=== PATIENT | male | born 1945 | race African-American/Black ===

== ENCOUNTER 2021-01-21 10:53 | Outpatient (CLI) | payer MEDICARE, BC, SELFPAY ==
[2021-01-21 19:10] LABS: Alanine Aminotransferase 20 U/L (4-50); Albumin Level 4.1 g/dL (3.5-5.1); Alkaline Phosphatase 73 U/L (38-126); Anion Gap 7 mmol/L (8-16); Aspartate Amino Transferase 26 U/L (17-59); Bilirubin,Total 1.1 mg/dL (0.2-1.3); Blood Urea Nitrogen 14 mg/dL (9-20); Calcium 9.6 mg/dL (8.4-10.2); Carbon Dioxide 25 mmol/L (22-30); Chloride 103 mmol/L (98-107); Cholesterol 125 mg/dL (0-200); Estimated Glomerular Filt Rate > 60; Glucose 130 mg/dL (65-110); HDL Direct 33 mg/dL; Potassium 4.8 mmol/L (3.4-5.0); Sodium 135 mmol/L (137-145); Triglycerides 108 mg/dL (<150)
[2021-01-21 19:20] LABS: LDL Cholesterol Direct 60 mg/dL
[2021-01-21 19:55] LABS: Hemoglobin A1C 8.1 % (<5.7)
[2021-01-23 22:17] LABS: PSA, Free 0.02 ng/mL; PSA, Total 0.1 ng/mL (<=4.0)
== END 2021-01-21 10:54 | disposition home or self-care (01) ==
PROVIDERS: PCP Family Medicine; Visit Provider Family Medicine
DX: Z12.5 Encounter for screening for malignant neoplasm of prostate (principal); Z51.81 Encounter for therapeutic drug level monitoring; Z79.899 Other long term (current) drug therapy; E66.3 Overweight; Z00.00 Encounter for general adult medical examination without abnormal findings
CPT/HCPCS: 36415; 80053; 80061; 83036; 84153; 84154; G0103

== ENCOUNTER 2021-01-28 10:43 | Outpatient (CLI) | payer MEDICARE, BC, SELFPAY ==
[2021-01-28 19:27] LABS: Hematocrit 43.6 % (42.0-52.0); Hemoglobin 13.1 g/dL (14.0-18.0); Mean Corpuscular Hemoglobin 22.7 pg (26-34); Mean Corpuscular Volume 75.4 fl (80-100); Mean Platelet Volume 11.3 fl (7.4-10.4); Platelet Count Result 184 k/mm3 (150-375); Red Blood Count 5.78 M/mm3 (4.6-6.20); Red Cell Distribution Width 17.7 % (11.5-14.5); White Blood Count 5.4 K/mm3 (4.5-10.0)
== END 2021-01-28 10:44 | disposition home or self-care (01) ==
PROVIDERS: PCP Family Medicine; Visit Provider Family Medicine
DX: R73.09 Other abnormal glucose (principal); E66.3 Overweight; Z76.89 Persons encountering health services in other specified circumstances
CPT/HCPCS: 36415; 83036; 85027

== ENCOUNTER 2021-04-30 09:16 | Outpatient (CLI) | payer MEDICARE, BC, SELFPAY ==
[2021-04-30 21:18] LABS: Hemoglobin A1C 6.8 % (<5.7)
== END 2021-04-30 09:17 | disposition home or self-care (01) ==
PROVIDERS: PCP Family Medicine; Visit Provider Family Medicine
DX: E11.9 Type 2 diabetes mellitus without complications (principal)
CPT/HCPCS: 36415; 83036

== ENCOUNTER 2021-04-30 11:00 | Outpatient (RCR) | payer MEDICARE, BC, SELFPAY ==
[2021-03-10 11:00] VITALS: BMI 31.1
[2021-03-10 11:02] VITALS: BMI 31.1
== END 2021-05-29 11:19 | disposition home or self-care (01) ==
LOC: ANHDMC 11:00
PROVIDERS: PCP Family Medicine; Visit Provider Family Medicine
DX: E11.9 Type 2 diabetes mellitus without complications (principal); Z71.3 Dietary counseling and surveillance; Z71.89 Other specified counseling
CPT/HCPCS: 36415; 83036; 97804; G0108

== ENCOUNTER 2021-05-06 11:29 | Outpatient (CLI) | payer MEDICARE, BC, SELFPAY ==
[2021-05-06 18:36] LABS: Hematocrit 40.4 % (42.0-52.0); Mean Corpuscular HGB Conc 29.7 g/dl (32-36); Mean Platelet Volume 10.7 fl (7.4-10.4); Platelet Count Result 264 k/mm3 (150-375); Red Blood Count 5.46 M/mm3 (4.6-6.20); Red Cell Distribution Width 16.5 % (11.5-14.5); White Blood Count 6.8 K/mm3 (4.5-10.0)
== END 2021-05-06 11:30 | disposition home or self-care (01) ==
PROVIDERS: PCP Family Medicine; Visit Provider Family Medicine
DX: E66.3 Overweight (principal)
CPT/HCPCS: 36415; 85027

== ENCOUNTER 2021-05-13 10:33 | Outpatient (CLI) | payer MEDICARE, BC, SELFPAY ==
[2021-05-13 17:49] LABS: Iron 74 ug/dL (49-181)
[2021-05-13 17:59] LABS: Percent Iron Saturation 30 % (20-50)
[2021-05-13 19:02] LABS: Folic Acid > 20.0 ng/mL (2.76->20); Vitamin B12 > 1000.0 pg/mL (239-931)
== END 2021-05-13 10:34 | disposition home or self-care (01) ==
PROVIDERS: PCP Family Medicine; Visit Provider Family Medicine
DX: D64.9 Anemia, unspecified (principal)
CPT/HCPCS: 36415; 82607; 82728; 82746; 83540; 83550

== ENCOUNTER 2021-06-15 12:08 | Outpatient (NON) | payer MEDICARE, BC, SELFPAY ==
[2021-06-15 14:27] LABS: IFOB Positive Control Positive; Immunochemical Fecal Occult Bl Negative (N)
== END 2021-06-15 12:09 | disposition home or self-care (01) ==
LOC: ANHLAB 06-17 12:20
PROVIDERS: PCP Family Medicine; Visit Provider Family Medicine
DX: D64.9 Anemia, unspecified (principal)
CPT/HCPCS: 82274

== ENCOUNTER 2021-07-02 12:15 | Outpatient (CLI) | payer MEDICARE, BC, SELFPAY ==
[2021-07-02 12:36] LABS: Basophils Absolute Auto 0.1 K/mm3 (0.0-0.1); Eosinophils Absolute Auto 0.2 K/mm3 (0-0.3); Eosinophils Percent Auto 2.8 % (0-4.4); Hematocrit 41.1 % (42.0-52.0); Hemoglobin 12.3 g/dL (14.0-18.0); Immature Granulocyte Absolute 0.01 K/mm3 (0.00-0.031); Immature Granulocyte Percent A 0.2 % (0-0.5); Lymphocytes Percent Auto 36.7 % (18.3-44.2); Mean Corpuscular HGB Conc 29.9 g/dl (32-36); Mean Corpuscular Hemoglobin 22.3 pg (26-34); Mean Corpuscular Volume 74.5 fl (80-100); Mean Platelet Volume 9.9 fl (7.4-10.4); Monocytes Absolute Auto 0.6 K/mm3 (0.1-0.6); Monocytes Percent Auto 10.7 % (2.6-8.5); Neutrophils Absolute Auto 2.9 K/mm3 (1.3-6.7); Neutrophils Percent Auto 48.6 % (45.5-73.1); Platelet Count Result 214 k/mm3 (150-375); Red Blood Count 5.52 M/mm3 (4.6-6.20); Red Cell Distribution Width 17.8 % (11.5-14.5)
[2021-07-02 13:06] LABS: Ovalocytes 1+ (NORMAL); Platelet Estimate Adequate (Adequate)
== END 2021-07-02 12:16 | disposition home or self-care (01) ==
PROVIDERS: PCP Family Medicine; Visit Provider Family Medicine
DX: D64.9 Anemia, unspecified (principal)
CPT/HCPCS: 36415; 85025

== ENCOUNTER 2021-07-30 09:36 | Outpatient (CLI) | payer MEDICARE, BC, SELFPAY ==
[2021-07-30 19:41] LABS: Alanine Aminotransferase 24 U/L (4-50); Albumin Level 4.2 g/dL (3.5-5.1); Alkaline Phosphatase 96 U/L (38-126); Anion Gap 7 mmol/L (8-16); Aspartate Amino Transferase 30 U/L (17-59); Bilirubin,Total 0.9 mg/dL (0.2-1.3); Blood Urea Nitrogen 16 mg/dL (9-20); Calcium 9.5 mg/dL (8.4-10.2); Carbon Dioxide 26 mmol/L (22-30); Chloride 102 mmol/L (98-107); Cholesterol 109 mg/dL (0-200); Estimated Glomerular Filt Rate > 60; Glucose 88 mg/dL (65-110); HDL Direct 36 mg/dL; Potassium 4.9 mmol/L (3.4-5.0); Sodium 135 mmol/L (137-145); Triglycerides 68 mg/dL (<150)
[2021-07-30 19:51] LABS: LDL Cholesterol Direct 57 mg/dL
[2021-07-31 13:00] LABS: Hemoglobin A1C 6.2 % (<5.7)
[2021-08-04 19:07] LABS: PSA, Free 0.03 ng/mL; PSA, Total <0.1 ng/mL (<=4.0)
== END 2021-07-30 09:37 | disposition home or self-care (01) ==
PROVIDERS: PCP Family Medicine; Visit Provider Family Medicine
DX: Z12.5 Encounter for screening for malignant neoplasm of prostate (principal); E11.9 Type 2 diabetes mellitus without complications
CPT/HCPCS: 36415; 80053; 80061; 83036; 84153; 84154; G0103

== ENCOUNTER 2021-08-12 14:30 | Outpatient (RCR) | payer MEDICARE, BC, SELFPAY | END 2021-10-05 14:23 | disposition home or self-care (01) | LOC: ANHDMC 14:30 | PROVIDERS: PCP Family Medicine; Visit Provider Family Medicine | DX: E11.9 Type 2 diabetes mellitus without complications (principal); Z71.89 Other specified counseling | CPT/HCPCS: 99199; G0109 ==

== ENCOUNTER 2022-02-10 10:12 | Outpatient (CLI) | payer MEDICARE, BC, SELFPAY ==
[2022-02-10 20:02] LABS: Basophils Absolute Auto 0.1 K/mm3 (0.0-0.1); Basophils Percent Auto 1.1 % (0.2-1.2); Eosinophils Absolute Auto 0.1 K/mm3 (0-0.3); Eosinophils Percent Auto 2.3 % (0-4.4); Hematocrit 43.9 % (42.0-52.0); Hemoglobin 13.1 g/dL (14.0-18.0); Immature Granulocyte Absolute 0.01 K/mm3 (0.00-0.031); Immature Granulocyte Percent A 0.2 % (0-0.5); Lymphocytes Absolute Auto 2.06 K/mm3 (0.9-3.2); Lymphocytes Percent Auto 39.2 % (18.3-44.2); Mean Corpuscular HGB Conc 29.8 g/dl (32-36); Mean Corpuscular Hemoglobin 22.5 pg (26-34); Mean Corpuscular Volume 75.6 fl (80-100); Mean Platelet Volume 10.6 fl (7.4-10.4); Monocytes Absolute Auto 0.6 K/mm3 (0.1-0.6); Monocytes Percent Auto 10.7 % (2.6-8.5); Neutrophils Absolute Auto 2.4 K/mm3 (1.3-6.7); Neutrophils Percent Auto 46.5 % (45.5-73.1); Platelet Count Result 219 k/mm3 (150-375); Red Blood Count 5.81 M/mm3 (4.6-6.20); Red Cell Distribution Width 18.2 % (11.5-14.5); White Blood Count 5.3 K/mm3 (4.5-10.0)
[2022-02-10 20:27] LABS: Platelet Estimate Adequate (Adequate)
[2022-02-10 20:28] LABS: Anisocytosis 2+ (NORMAL); Hypochromasia 1+ (NORMAL)
[2022-02-10 20:29] LABS: Anion Gap 10 mmol/L (8-16); Blood Urea Nitrogen 16 mg/dL (9-20); Calcium 8.9 mg/dL (8.4-10.2); Carbon Dioxide 24 mmol/L (22-30); Chloride 101 mmol/L (98-107); Estimated Glomerular Filt Rate > 60; Glucose 82 mg/dL (65-110); Potassium 4.9 mmol/L (3.4-5.0); Sodium 135 mmol/L (137-145)
[2022-02-10 23:22] LABS: Hemoglobin A1C 6.4 % (<5.7)
== END 2022-02-10 10:13 | disposition home or self-care (01) ==
PROVIDERS: PCP Family Medicine; Visit Provider Family Medicine
DX: I50.9 Heart failure, unspecified (principal); E11.9 Type 2 diabetes mellitus without complications; D64.9 Anemia, unspecified
CPT/HCPCS: 36415; 80048; 83036; 85025

== ENCOUNTER 2022-08-11 09:38 | Outpatient (CLI) | payer MEDICARE, BC, SELFPAY ==
[2022-08-11 19:48] LABS: Alanine Aminotransferase 32 U/L (6-50); Albumin Level 4.1 g/dL (3.5-5.1); Alkaline Phosphatase 82 U/L (38-126); Anion Gap 7 mmol/L (8-16); Aspartate Amino Transferase 98 U/L (17-59); Bilirubin,Total 0.9 mg/dL (0.2-1.3); Blood Urea Nitrogen 19 mg/dL (9-20); Carbon Dioxide 29 mmol/L (22-30); Chloride 101 mmol/L (98-107); Estimated Glomerular Filt Rate > 60; Glucose 77 mg/dL (65-110); Potassium 4.6 mmol/L (3.4-5.0); Sodium 137 mmol/L (137-145)
[2022-08-11 19:57] LABS: Basophils Percent Auto 0.8 % (0.2-1.2); Eosinophils Absolute Auto 0.1 K/mm3 (0-0.3); Eosinophils Percent Auto 2.2 % (0-4.4); Hematocrit 45.4 % (42.0-52.0); Hemoglobin 13.6 g/dL (14.0-18.0); Immature Granulocyte Absolute 0.01 K/mm3 (0.00-0.031); Immature Granulocyte Percent A 0.2 % (0-0.5); Lymphocytes Percent Auto 37.8 % (18.3-44.2); Mean Corpuscular Hemoglobin 22.3 pg (26-34); Mean Corpuscular Volume 74.5 fl (80-100); Mean Platelet Volume 11.1 fl (7.4-10.4); Monocytes Absolute Auto 0.5 K/mm3 (0.1-0.6); Monocytes Percent Auto 10.5 % (2.6-8.5); Neutrophils Absolute Auto 2.4 K/mm3 (1.3-6.7); Neutrophils Percent Auto 48.5 % (45.5-73.1); Platelet Count Result 209 k/mm3 (150-375); Red Blood Count 6.09 M/mm3 (4.6-6.20); Red Cell Distribution Width 17.9 % (11.5-14.5)
[2022-08-11 20:02] LABS: Creatinine Urine 50.9 mg/dL
[2022-08-11 20:20] LABS: MALB Creatinine Ratio < 11.8 mg/g (0-30); Microalbumin Urine Random < 6.0 mg/L (0-16.7)
[2022-08-11 20:49] LABS: Platelet Estimate Adequate (Adequate); Schistocytes None Seen (NORMAL)
[2022-08-11 20:50] LABS: Anisocytosis 2+ (NORMAL); Hypochromasia 1+ (NORMAL)
[2022-08-11 21:19] LABS: Hemoglobin A1C 6.6 % (<5.7)
== END 2022-08-11 09:39 | disposition home or self-care (01) ==
LOC: ANHBWCLAB 09:39
PROVIDERS: PCP Family Medicine; Visit Provider Family Medicine
DX: E11.9 Type 2 diabetes mellitus without complications (principal)
CPT/HCPCS: 36415; 80053; 82043; 83036; 85025

== ENCOUNTER 2023-02-14 09:58 | Outpatient (CLI) | payer MEDICARE, BC, SELFPAY ==
[2023-02-14 18:59] LABS: Alanine Aminotransferase 28 U/L (6-50); Alkaline Phosphatase 62 U/L (38-126); Anion Gap 7 mmol/L (8-16); Aspartate Amino Transferase 73 U/L (17-59); Bilirubin,Total 0.7 mg/dL (0.2-1.3); Blood Urea Nitrogen 23 mg/dL (9-20); Calcium 9.3 mg/dL (8.4-10.2); Carbon Dioxide 27 mmol/L (22-30); Chloride 103 mmol/L (98-107); Cholesterol 107 mg/dL (0-200); Estimated Glomerular Filt Rate > 60; Glucose 94 mg/dL (65-110); HDL Direct 32 mg/dL; Potassium 4.6 mmol/L (3.4-5.0); Sodium 137 mmol/L (137-145); Triglycerides 48 mg/dL (<150)
[2023-02-14 19:06] LABS: Creatinine Urine 278.7 mg/dL
[2023-02-14 19:07] LABS: MALB Creatinine Ratio 5.2 mg/g (0-30); Microalbumin Urine Random 14.4 mg/L (0-16.7)
[2023-02-14 19:10] LABS: LDL Cholesterol Direct 58 mg/dL
[2023-02-14 19:50] LABS: Hemoglobin A1C 6.5 % (<5.7)
[2023-02-14 19:55] LABS: Hematocrit 45.3 % (42.0-52.0); Hemoglobin 12.8 g/dL (14.0-18.0); Mean Corpuscular HGB Conc 28.3 g/dl (32-36); Mean Corpuscular Volume 77.7 fl (80-100); Mean Platelet Volume 11.2 fl (7.4-10.4); Platelet Count Result 201 k/mm3 (150-375); Red Blood Count 5.83 M/mm3 (4.6-6.20); Red Cell Distribution Width 17.5 % (11.5-14.5); White Blood Count 5.1 K/mm3 (4.5-10.0)
[2023-02-15 17:52] LABS: Prostate Specific Antigen 0.2 ng/mL (< OR = 4.0)
== END 2023-02-14 09:59 | disposition home or self-care (01) ==
PROVIDERS: PCP Family Medicine; Visit Provider Family Medicine
DX: E11.9 Type 2 diabetes mellitus without complications (principal); Z12.5 Encounter for screening for malignant neoplasm of prostate
CPT/HCPCS: 36415; 80053; 80061; 82043; 83036; 84153; 85027; G0103

== ENCOUNTER 2023-08-29 11:34 | Outpatient (CLI) | payer MEDICARE, BC, SELFPAY ==
[2023-08-29 20:37] LABS: Basophils Absolute Auto 0.1 K/mm3 (0.0-0.1); Eosinophils Absolute Auto 0.1 K/mm3 (0-0.3); Eosinophils Percent Auto 2.2 % (0-4.4); Hematocrit 45.7 % (42.0-52.0); Immature Granulocyte Absolute 0.01 K/mm3 (0.00-0.031); Immature Granulocyte Percent A 0.2 % (0-0.5); Lymphocytes Absolute Auto 2.15 K/mm3 (0.9-3.2); Lymphocytes Percent Auto 42.2 % (18.3-44.2); Mean Corpuscular HGB Conc 28.4 g/dl (32-36); Mean Corpuscular Hemoglobin 21.8 pg (26-34); Mean Corpuscular Volume 76.5 fl (80-100); Monocytes Absolute Auto 0.6 K/mm3 (0.1-0.6); Monocytes Percent Auto 11.8 % (2.6-8.5); Neutrophils Absolute Auto 2.2 K/mm3 (1.3-6.7); Neutrophils Percent Auto 42.6 % (45.5-73.1); Platelet Count Result 195 k/mm3 (150-375); Red Blood Count 5.97 M/mm3 (4.6-6.20); Red Cell Distribution Width 17.7 % (11.5-14.5); White Blood Count 5.1 K/mm3 (4.5-10.0)
[2023-08-29 20:45] LABS: Microalbumin Urine Random 7.1 mg/L (0-16.7)
[2023-08-29 20:47] LABS: Creatinine Urine 75.2 mg/dL; MALB Creatinine Ratio 9.4 mg/g (0-30)
[2023-08-29 21:30] LABS: Platelet Estimate Adequate (Adequate)
[2023-08-29 21:31] LABS: Anisocytosis 2+; Hypochromasia 1+; Microcytosis 1+ (NORMAL); Schistocytes None Seen
[2023-08-29 21:37] LABS: Alanine Aminotransferase 27 U/L (6-50); Albumin Level 4.2 g/dL (3.5-5.1); Alkaline Phosphatase 65 U/L (38-126); Anion Gap 3 mmol/L (4-12); Aspartate Amino Transferase 64 U/L (17-59); Bilirubin,Total 0.8 mg/dL (0.2-1.3); Blood Urea Nitrogen 20 mg/dL (9-20); Calcium 9.1 mg/dL (8.4-10.2); Carbon Dioxide 31 mmol/L (22-30); Chloride 102 mmol/L (98-107); Cholesterol 111 mg/dL (0-200); Estimated Glomerular Filt Rate > 60; Glucose 81 mg/dL (65-110); HDL Direct 36 mg/dL; Potassium 4.7 mmol/L (3.4-5.0); Sodium 136 mmol/L (137-145); Triglycerides 66 mg/dL (<150)
[2023-08-29 21:48] LABS: LDL Cholesterol Direct 64 mg/dL
[2023-08-29 22:44] LABS: Hemoglobin A1C 6.4 % (<5.7)
== END 2023-08-29 11:35 | disposition home or self-care (01) ==
PROVIDERS: PCP Family Medicine; Visit Provider Family Medicine
DX: E11.9 Type 2 diabetes mellitus without complications (principal)
CPT/HCPCS: 36415; 80053; 80061; 82043; 83036; 85025

== ENCOUNTER 2024-02-01 08:44 | Outpatient (CLI) | payer MEDICARE, BC, SELFPAY ==
--- NOTE | ~2024-02-01 | US_ITS ---
EXAMINATION: US abdomen limited DATE: 02/01/2024 09:08 INDICATION: Abnormal liver function tests. TECHNIQUE: Multiple grayscale and Doppler ultrasound images of the abdomen were obtained. COMPARISON: None FINDINGS: The pancreas is obscured by bowel gas. The liver is normal without focal lesion. No liver s urface nodularity. There is normal flow in main portal vein. The gallbladder is normal in size. No ga llstones or gallbladder wall thickening. There is no sonographic Maravilla's sign. The common duct is no rmal and measures 4 mm. IMPRESSION: 1. Normal right upper quadrant ultrasound. Reviewed, dictated and finalized at location A.
== END 2024-02-01 08:45 | disposition home or self-care (01) ==
LOC: GOSHIMG 08:45
PROVIDERS: PCP Family Medicine; Visit Provider Family Medicine
DX: R74.01 Elevation of levels of liver transaminase levels (principal)
CPT/HCPCS: 76705

== ENCOUNTER 2024-03-01 10:21 | Outpatient (CLI) | payer MEDICARE, BC, SELFPAY ==
[2024-03-01 19:52] LABS: Hematocrit 46.8 % (42.0-52.0); Hemoglobin 13.6 g/dL (14.0-18.0); Mean Corpuscular HGB Conc 29.1 g/dl (32-36); Mean Corpuscular Hemoglobin 22.4 pg (26-34); Mean Corpuscular Volume 77.2 fl (80-100); Mean Platelet Volume 10.9 fl (7.4-10.4); Platelet Count Result 199 k/mm3 (150-375); Red Blood Count 6.06 M/mm3 (4.6-6.20); Red Cell Distribution Width 18.3 % (11.5-14.5)
[2024-03-01 20:15] LABS: Alanine Aminotransferase 27 U/L (6-50); Albumin Level 4.4 g/dL (3.5-5.1); Alkaline Phosphatase 70 U/L (38-126); Anion Gap 6 mmol/L (4-12); Aspartate Amino Transferase 75 U/L (17-59); Bilirubin,Total 0.9 mg/dL (0.2-1.3); Blood Urea Nitrogen 19 mg/dL (9-20); Calcium 8.8 mg/dL (8.4-10.2); Carbon Dioxide 30 mmol/L (22-30); Chloride 98 mmol/L (98-107); Estimated Glomerular Filt Rate > 60; Glucose 91 mg/dL (65-110); Potassium 4.7 mmol/L (3.4-5.0); Sodium 134 mmol/L (137-145)
[2024-03-01 20:43] LABS: Prostate Specific Antigen 0.1 ng/mL (< OR = 4.0)
[2024-03-01 20:53] LABS: Creatinine Urine 64.8 mg/dL
[2024-03-01 21:16] LABS: Microalbumin Urine Random < 6.0 mg/L (0-16.7)
[2024-03-01 21:17] LABS: Hemoglobin A1C 6.8 % (<5.7)
[2024-03-01 21:26] LABS: Hepatitis B Surface Antigen Negative (Negative)
[2024-03-01 21:32] LABS: HAV RESULT Negative (Negative); Hepatitis B Core IgM Result Negative (Negative)
[2024-03-01 21:52] LABS: Hepatitis C Virus Antibody Negative (Negative)
[2024-03-08 05:45] LABS: MALB Creatinine Ratio < 9.3 mg/g (0-30)
== END 2024-03-01 10:22 | disposition home or self-care (01) ==
PROVIDERS: PCP Family Medicine; Visit Provider Family Medicine
DX: R74.01 Elevation of levels of liver transaminase levels (principal); E11.9 Type 2 diabetes mellitus without complications; I48.91 Unspecified atrial fibrillation; I50.9 Heart failure, unspecified; I11.0 Hypertensive heart disease with heart failure; E78.5 Hyperlipidemia, unspecified; D64.9 Anemia, unspecified; D56.9 Thalassemia, unspecified; Z12.5 Encounter for screening for malignant neoplasm of prostate
CPT/HCPCS: 36415; 80053; 80074; 82043; 82565; 83036; 84153; 85027; G0103

== ENCOUNTER 2024-09-05 09:50 | Outpatient (CLI) | payer MEDICARE, BC, SELFPAY ==
--- OUTSIDE RECORDS SUMMARY | 2024-09-05 10:45 | XMS_ITS | Referral Summary ---
Author Organization [facility] Address [address] [place] [address] Care Team Providers Care Production Potter Name Role Phone Charly Barnes MD Primary Care Provider [phone] John Younger MD Unavailable [phone] Allergies No known active allergies Medications Eliquis 5 mg tabletIndications :atrial fibrillation Take 1 tablet (5 mg total) by mouth 2 (two) times a day 1 Active atorvastatin (LIPITOR) 20 mg tabletIndications :hyperlipidemia Take 1 tablet (20 mg total) by mouth nightly 1 Active folic acid (FOLVITE) 1 mg tabletIndications :SUPPLEMENT Take 2 tablets (2 mg total) by mouth nightly 2 tablets 1 Active irbesartan (AVAPRO) 150 mg tabletIndications :hypertension Take 1 tablet (150 mg total) by mouth nightly 1 Active spironolactone (ALDACTONE) 25 mg tabletIndications :hypertension Take 1 tablet (25 mg total) by mouth every morning 1 Active carvediloL (COREG) 12.5 mg tabletIndications :hypertension Take 1 tablet (12.5 mg total) by mouth 2 (two) times a day with meals 2 Active loratadine (CLARITIN) 10 mg tabletIndications :Allergic Rhinitis Take 1 tablet (10 mg total) by mouth nightly Active omega 6-nuc-vcr-fish oil 1,200 (144-216) mg capsule Take 1,200 mg by mouth nightly Active vitamin E 200 unit capsule Take 1 capsule (200 Units total) by mouth daily Active cyanocobalamin (Vitamin B-12) 1,000 mcg tabletIndications :Prevention of Vitamin B12 Deficiency Take 1 tablet (1,000 mcg total) by mouth daily Active cholecalciferol, vitamin D3, 1,000 unit tablet,chewable Take 1 tablet/chew tab by mouth every morning Active erythromycin (ILOTYCIN) ophthalmic ointment Place on incisions three times per day and in operative eye as needed. 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 01/31 Ptosis of eyelid, left 10/29/2023 Assessment & Plan (10/29/2023 8:29 AM CDT): Referral to oculoplastics Pseudophakia of both eyes 06/27/2023 Assessment & Plan (06/27/2023 9:17 PM DATA DELIVERABLES MANAGER): Defers Mrx for now May obtain elsewhere Postop check 12/24/2022 Assessment & Plan (04/29/2023 2:31 PM DATA DELIVERABLES MANAGER): POM2.5 status post (s/p) cataract extraction (CE)/intraocular lens (IOL)/open bleb revision left eye (OS) Intraocular pressure (IOP) higher today, Xiao negative with large diffuse bleb, thick tenons will likely resolve No Mrx given Pred forte (PF) 1-1-0 taper, restart Alphagan left eye (OS) bid Cont Brim and Dorz right eye (OD) - intraocular pressure (IOP) excellent F/U 2 months/prn- Zavala visual field (HVF) 10-2 left eye (OS), OCT Assessment & Plan (03/21/2023 9:50 AM CDT): POW4 status post (s/p) cataract extraction (CE)/intraocular lens (IOL)/open bleb revision left eye (OS) Intraocular pressure (IOP) higher today, Xiao negative with large diffuse bleb, thick tenons will likely resolve Pred forte (PF) 3-3-2-2, restart Dorz left eye (OS) bid Cont Brim and Dorz right eye (OD) - intraocular pressure (IOP) excellent Reviewed prec F/U 1 month/prn- repeat Mrx left eye (OS) Assessment & Plan (02/25/2023 2:42 PM CDT): POW1 status post (s/p) cataract extraction (CE)/intraocular lens (IOL)/open bleb revision left eye (OS) Early hypotony resolved, Xiao negative with large diffuse bleb, thick tenons will likely resolve Pred forte (PF) 4-4-3, DC Oflox Hold glc meds left eye (OS) Hold timolol right eye (OD), restart brimonidine right eye (OD) Reviewed prec F/U 3 wks/prn Assessment & Plan (02/18/2023 11:15 AM CDT): POD1 status post (s/p) cataract extraction (CE)/intraocular lens (IOL)/open bleb revision left eye (OS) Early hypotony with bleb revision, Xiao negative with large diffuse bleb, thick tenons will likely resolve, no choroidals, deep anterior chamber (AC) Pred forte (PF) 6x/day, Oflox qid, renetta prn Hold glc meds left eye (OS) Hold timolol right eye (OD) Reviewed prec F/U 1 wk/prn Assessment & Plan (01/21/2023 1:25 PM CDT): POM1 status post (s/p) cataract extraction (CE)/intraocular lens (IOL)/KDB right eye (OD) Doing well- very happy with vision Intraocular pressure (IOP) lower today- continue to hold timolol Recommend cataract extraction (CE)/intraocular lens (IOL)/bleb revision left eye (OS) Discussed with pt- ready to schedule Target plano Assessment & Plan (01/03/2023 8:49 PM CDT): POW1 status post (s/p) cataract extraction (CE)/intraocular lens (IOL)/KDB right eye (OD) Doing well Suture tight in wound- vision improved Intraocular pressure (IOP) lower today- continue to hold timolol Pred forte (PF) taper off, DC oflox F/U 1 month Resume activities, september travel Assessment & Plan (12/24/2022 7:57 AM CDT): POD1 status post (s/p) cataract extraction (CE)/intraocular lens (IOL)/KDB right eye (OD) Doing well Suture tight in wound- Intraocular pressure (IOP) lower today- hold timolol for now Pred forte (PF)/Oflox qid, cont dorz both eyes (OU) F/U 1 wk Reviewed precautions Primary angle closure glaucoma of right eye, mil d stage 12/01/2020 Assessment & Plan (04/28/2024 8:08 AM DATA DELIVERABLES MANAGER): Intraocular pressure (IOP) acceptable low teens on 2 classes status post (s/p) KDB Zavala visual field (HVF) NS defects, OCT stable with early thinning CPM for now Assessment & Plan (10/29/2023 8:29 AM CDT): intraocular pressure (IOP) stable in low teens on 2 classes status post (s/p) KDB CPM for now Assessment & Plan (06/27/2023 9:16 PM DATA DELIVERABLES MANAGER): intraocular pressure (IOP) stable in low teens on 2 classes status post (s/p) KDB CPM for now Assessment & Plan (11/08/2022 8:50 PM CDT): intraocular pressure (IOP) remains borderline full Zavala visual field (HVF) but inf nerve fiber layer (NFL) thinning progression CPM- tolerating brimonidine with chronic follicular changes/stable left eye (OS) Narrow angle- unable to perform SLT Likely benefit to cataract extraction (CE)/MIGS- noted on Eliquis ? May be able to DC preop Discussed with pt Assessment & Plan (08/02/2022 12:59 PM CDT): intraocular pressure (IOP) remains borderline with nl nerve fiber layer (NFL) and full Zavala visual field (HVF) CPM- tolerating brimonidine with chronic follicular changes/stable left eye (OS) Now to use both eyes (OU) Narrow angle- may be difficult to perform SLT F/U 2-3 months with testing Assessment & Plan (06/01/2022 10:26 AM DATA DELIVERABLES MANAGER): Patient states he was noticing some visual changes at the completion of first bottle of cosopt, so he switched back to previous drops This seemed to alleviate visual symptoms. Some confusion on drop schedule, as patient now using brimonidine OU Follicular reaction stable from previous notes 1-2+ OU, patient states his eyes feel fine - nothing keeping him from using medications at this time IOP today 22 / 8. Educated patient on drop schedule until next visit with CJS, gave patient written form as well with drop schedule. RTC 2 months with CJS, will correspond as well today. Can f/u with me between if needed. Brimonidine TID OU Timolol BID OU Dorzolamide BID OU Assessment & Plan (03/27/2022 7:23 AM CDT): intraocular pressure (IOP) remains borderline with nl nerve fiber layer (NFL) and full Zavala visual field (HVF) CPM- tolerating brimonidine with chronic follicular changes/stable Will hold left eye (OS) for comparison Narrow angle- may be difficult to perform SLT Switch to Cosopt bid and intraocular pressure (IOP) check in 2 months cataract extraction (CE)/MIGS may be a good option- noted Eliquis tx Assessment & Plan (09/28/2021 9:59 PM CDT): intraocular pressure (IOP) borderline with nl nerve fiber layer (NFL) and full Zavala visual field (HVF) CPM- tolerating brimonidine with chronic follicular changes/stable Narrow angle- may be difficult to perform SLT Assessment & Plan (05/04/2021 10:53 AM DATA DELIVERABLES MANAGER): intraocular pressure (IOP) improved - good adherence Noted intraocular pressure (IOP) lowering with dose of brimonidine- ? Early follicular changes both eyes (OU)- discussed with pt Monitor closely with full Zavala visual field (HVF) May benefit from early cataract extraction (CE) Assessment & Plan (01/06/2021 7:56 AM CDT): intraocular pressure (IOP) improved - good adherence Noted intraocular pressure (IOP) lowering with dose of brimonidine Monitor closely with full Zavala visual field (HVF) May benefit from early cataract extraction (CE) Assessment & Plan (12/01/2020 9:04 PM CDT): Significant area of angle appears closed- ? Progressive intraocular pressure (IOP) elevated today as pt reports intraocular pressure (IOP) was in mid to upper teens 4 months ago Early nerve fiber layer (NFL) loss, full Zavala visual field (HVF) Increase brimonidine to tid F/U 1 month- Primary open angle glaucoma (POAG) of left eye, severe stage 12/01/2020 Assessment & Plan (04/28/2024 8:06 AM DATA DELIVERABLES MANAGER): Status post (s/p) bleb revision- intraocular pressure (IOP) acceptable back on 2 classes CPM Zavala visual field (HVF) 10-2 and OCT stable F/U [address] Whatley DFE F/U 1 yr with in Zavala visual field (HVF) 24-2 both eyes (OU), OCT Assessment & Plan (10/29/2023 8:28 AM CDT): Status post (s/p) bleb revision- intraocular pressure (IOP) acceptable back on 2 classes CPM F/U 4-5 months with Zavala visual field (HVF) 10-2 left eye (OS), 24-2 right eye (OD), OCT Assessment & Plan (06/27/2023 9:15 PM DATA DELIVERABLES MANAGER): Status post (s/p) bleb revision- intraocular pressure (IOP) acceptable back on 2 classes Zavala visual field (HVF) 10-2 and OCT stable CPM F/U 4 months with DFE Assessment & Plan (11/08/2022 8:45 PM CDT): intraocular pressure (IOP) acceptable status post (s/p) trab on 3 classes Baseline Zavala visual field (HVF) 10-2 today Needling may be difficult with diffusely thickened bleb Follicular reaction asymptomatic/stable Recommend Trab revision with cataract extraction (CE)- discussed with pt Assessment & Plan (08/02/2022 12:59 PM CDT): intraocular pressure (IOP) acceptable status post (s/p) trab on 3 classes Monitor closely Needling may be difficult with diffusely thickened bleb Baseline Zeiss OCT today appears stable Follicular rxn likely from brimonidine asymptomatic but appears worse F/U 2-3 months-Zavala visual field (HVF) 10-2, BAT, DFE, OCT Assessment & Plan (06/01/2022 10:28 AM DATA DELIVERABLES MANAGER): S/P trab Previous follicular conjunctivitis, patient has been using brimonidine OU since last visit - no comparison possible today. RTC with CJS 2 months, PRN with me between See above Brimonidine TID OU Timolol BID OU Dorzolamide BID OU Assessment & Plan (03/27/2022 7:20 AM CDT): intraocular pressure (IOP) acceptable status post (s/p) trab on 3 classes Monitor closely Needling may be difficult with diffusely thickened bleb Baseline Zeiss OCT today appears stable Follicular rxn likely from brimonidine asymptomatic but appears worse Hold brimonidine left eye (OS) and switch to Cosopt OU F/U 2 months- intraocular pressure (IOP) and follicle check with Dr. Whatley Then back to me thereafter Assessment & Plan (09/28/2021 9:58 PM CDT): intraocular pressure (IOP) acceptable status post (s/p) trab on 3 classes Monitor closely Needling may be difficult with diffusely thickened bleb Zavala visual field (HVF) and OCT stable F/U 5 months-OCT- RNFL and ganglion cell layer (GCL) Assessment & Plan (05/04/2021 10:53 AM DATA DELIVERABLES MANAGER): intraocular pressure (IOP) acceptable status post (s/p) trab on 3 classes Monitor closely Reviewed records from Dr. India Talbot may be difficult with diffusely thickened bleb F/U 5 months- Zavala visual field (HVF), OCT, BAT, DFE Assessment & Plan (01/06/2021 7:54 AM CDT): intraocular pressure (IOP) acceptable status post (s/p) trab on 3 classes Monitor closely Reviewed records from Dr. India Talbot may be difficult with diffusely thickened bleb F/U 4 months Assessment & Plan (12/01/2020 9:03 PM CDT): No records available for review Pt reports intraocular pressure (IOP) in 30s on maximal meds, status post (s/p) SLT Underwent trab left eye (OS) with some resultant vision loss Now with acceptable intraocular pressure (IOP) on 3 classes Bleb appears diffuse, thickened CPM for now with significant visual field (VF) loss, afferent pupillary defect (APD), avg CCT Resolved Problems Problem Noted Date Diagnosed Date Resolved Date Age-related nuclear cataract of both eyes 12/01/2020 06/27/2023 Assessment & Plan (11/08/2022 8:48 PM CDT): BAT confirms glare sx both eyes (OU) Glaucoma significance to angle right eye (OD), ? Potential left eye (OS) with advanced visual field (VF) loss Recommend cataract extraction (CE) / intraocular lens (IOL) KDB right eye (OD) Cataract extraction (CE)/intraocular lens (IOL)/ Bleb revision left eye (OS) Target plano Pt to decide which eye first Assessment & Plan (08/02/2022 1:00 PM CDT): Some glare symptoms left eye (OS)? Check BAT next visit - appears to be developing PSC Assessment & Plan (09/28/2021 9:59 PM CDT): Not VS- observe Assessment & Plan (05/04/2021 10:54 AM DATA DELIVERABLES MANAGER): No significant lens rise, Not VS BAT next visit Assessment & Plan (12/01/2020 9:05 PM CDT): No significant lens rise, Not VS Immunizations Immunization Administration Dates Next Due Influenza, Quad, Adjuvantated, Intramuscular 08/2022 Influenza, Quadrivalent, Hig h Dose, Preservative Free, Intrr 02/17/2022,03/05/2021 Influenza, Trivalent, High D ose, Split, Preservative Free, Intramuscular 02/08/2024 Pfizer SARS-CoV-2 Monovalent Vaccination (12+ Yrs) PURPLE 08/25/2020,08/01/2020 RSV Vaccine, Pref, Recombina nt, Subunit, Adjuvanted, PF, IM (Arexvy) 03/16/2023 Social History Tobacco Use Types Packs/Day Years Used Date Smoking Tobacco: Never Passive Smoke Exposure: Never Smokeless Tobacco: Never Tobacco Cessation:Counseling Given: Not Answered AUDIT-C Answer Date Recorded Q1: How often do you have a drink containing alcohol? Never 04/23/2024 Q2: How many drinks containi ng alcohol do you have on a typical day when you are drinking? Patient does not drink Q3: How often do you have si x or more drinks on one occasion? Never 04/23/2024 Personal Safety Answer Date Recorded Have you ever been in or are you currently in a harmful physical or emotional relationship or is someone making you feel afraid or unsafe? Denies 04/23/2024 Sex and Gender Information Value Date Recorded Sex Assigned at Not on file Legal Sex Male 11:27 AM CDT Gender Identity Male 02/28/2023 1:58 PM CDT Sexual Orientation Straight 02/28/2023 1: 58 PM CDT Last Filed Vital Signs Vital Sign Reading Time Taken Comments Blood Pressure 128/85 04/23/2024 11:45 AM DATA DELIVERABLES MANAGER Pulse 71 04/23/2024 11:45 AM DATA DELIVERABLES MANAGER Temperature 36.2 C (97.2 F) 04/23/2024 11:15 AM DATA DELIVERABLES MANAGER Respiratory Rate 20 04/23/2024 11:4 5 AM DATA DELIVERABLES MANAGER Oxygen Saturation 95% 04/23/2024 11: 45 AM DATA DELIVERABLES MANAGER Inhaled Oxygen Concentration - - Weight 112.4 kg (247 lb 11.2 oz) 04/23/2024 9:37 AM DATA DELIVERABLES MANAGER Height 190.5 cm (6' 3 ) 04/23/2024 9:37 AM DATA DELIVERABLES MANAGER Body Mass Index 30.96 04/23/2024 9:37 AM DATA DELIVERABLES MANAGER Plan of Treatment Not on file Medical Devices Implanted Type Area Hat Sprayer Device Identifier Shelf Expiration Date Model / Serial / Lot [employer] Lens Iol Tecnis Smplcty 1-Pc Clr [place] 20.5 Diopter [id number] - [id number] - [id number] Implanted:Qty: 1 on 12/23/2022 by Spring Yeboah MD at [facility] [employer] [id number] 07/19/2025 [id number] / [id number] / [employer] Lens Iol Tecnis Smplcty 1-Pc Clr [place] 20.5 Diopter [id number] - [id number] - [id number] Implanted:Qty: 1 on 02/17/2023 by Spring Yeboah MD at [facility] Left: Eye [employer] [id number] 09/13/2025 [id number] / [id number] / Insurance MEDICARE [facility] MEDICARE [facility] Care Teams Production Potter Relationship Specialty Start Date End Date Charly Barnes MD PCP - General Family Practice 05/04/21 John Younger MD [address] DEPT OPHTHALMOLOGY, [address] [address] Surgeon Ophthalmology 04/23/24
--- OUTSIDE RECORDS SUMMARY | 2024-09-05 10:45 | XMS_ITS | Clinical Summary ---
Author Organization [facility] Address [address] [place] [address] Care Team Providers Care Facility Supervisor Name Role Phone Charly Barnes MD Primary Care Provider [phone] John Younger MD Unavailable [phone] Allergies No known active allergies Medications Eliquis [...] mg total) by mouth nightly Active omega 6-nll-hqe-fish oil 1,200 (144-216) mg capsule Take 1,200 [...] 06/27/2023 Assessment & Plan (06/27/2023 9:17 PM BEEF SELECTOR): Defers Mrx for now May obtain elsewhere Postop check 12/24/2022 Assessment & Plan (04/29/2023 2:31 PM BEEF SELECTOR): POM2.5 status post (s/p) cataract extraction (CE)/intraocular [...] 12/01/2020 Assessment & Plan (04/28/2024 8:08 AM BEEF SELECTOR): Intraocular pressure (IOP) acceptable low teens on 2 classes status post (s/p) KDB Zavala visual field (HVF) NS defects, OCT stable with early thinning CPM for now Assessment & Plan (10/29/2023 8:29 AM CDT): intraocular pressure (IOP) stable in low teens on 2 classes status post (s/p) KDB CPM for now Assessment & Plan (06/27/2023 9:16 PM BEEF SELECTOR): intraocular pressure (IOP) stable in low teens [...] testing Assessment & Plan (06/01/2022 10:26 AM BEEF SELECTOR): Patient states he was noticing some visual [...] SLT Assessment & Plan (05/04/2021 10:53 AM BEEF SELECTOR): intraocular pressure (IOP) improved - good adherence [...] 12/01/2020 Assessment & Plan (04/28/2024 8:06 AM BEEF SELECTOR): Status post (s/p) bleb revision- intraocular pressure (IOP) acceptable back on 2 classes CPM Zavala visual field (HVF) 10-2 and OCT stable F/U [address] Whatley DFE F/U 1 yr with tx Zavala visual field (HVF) 24-2 both eyes (OU), OCT Assessment & Plan (10/29/2023 8:28 AM CDT): Status post (s/p) bleb revision- intraocular pressure (IOP) acceptable back on 2 classes CPM F/U 4-5 months with Zavala visual field (HVF) 10-2 left eye (OS), 24-2 right eye (OD), OCT Assessment & Plan (06/27/2023 9:15 PM BEEF SELECTOR): Status post (s/p) bleb revision- intraocular pressure [...] OCT Assessment & Plan (06/01/2022 10:28 AM BEEF SELECTOR): S/P trab Previous follicular conjunctivitis, patient has [...] (GCL) Assessment & Plan (05/04/2021 10:53 AM BEEF SELECTOR): intraocular pressure (IOP) acceptable status post (s/p) [...] observe Assessment & Plan (05/04/2021 10:54 AM BEEF SELECTOR): No significant lens rise, Not VS BAT [...] nt, Subunit, Adjuvanted, PF, IM (Arexvy) 03/16/2023 Surgical History Surgery Date Site/Laterality Comments TRABECULOPLASTY 05/23/2018 - 05/22/2019 Left SLT BUNIONECTOMY 05/23/1999 - 05/22/2000 Right CATARACT EXTRACTION W/ INTRAOCULAR LENS IMPLANT 12/23/2022 Right CE/IOL/KDB - Dr. Yeboah CATARACT EXTRACTION W/ INTRAOCULAR LENS IMPLANT 02/17/2023 Left CE/IOL/Bleb revision-Dr. Yeboah BLEPHAROPTOSIS REPAIR 04/23/[address] Younger Medical History Medical History Date Comments Glaucoma Hypertension Arrhythmia CHF (congestive heart failure) ([facility]) A-fib ([facility]) Family History Medical History Relation Name Comments Anesthesia problems Neg Hx Glaucoma Neg Hx Macular degeneration Neg Hx Malig Hypertension Neg Hx Malig Hyperthermia Neg Hx Pseudochol deficiency Neg Hx Social History Tobacco Use Types Packs/Day Years [...] Orientation Straight 02/28/2023 1: 58 PM CDT Obstetrics History Last Filed Vital Signs Vital Sign Reading Time Taken Comments Blood Pressure 128/85 04/23/2024 11:45 AM BEEF SELECTOR Pulse 71 04/23/2024 11:45 AM BEEF SELECTOR Temperature 36.2 C (97.2 F) 04/23/2024 11:15 AM BEEF SELECTOR Respiratory Rate 20 04/23/2024 11:4 5 AM BEEF SELECTOR Oxygen Saturation 95% 04/23/2024 11: 45 AM BEEF SELECTOR Inhaled Oxygen Concentration - - Weight 112.4 kg (247 lb 11.2 oz) 04/23/2024 9:37 AM BEEF SELECTOR Height 190.5 cm (6' 3 ) 04/23/2024 9:37 AM BEEF SELECTOR Body Mass Index 30.96 04/23/2024 9:37 AM BEEF SELECTOR Plan of Treatment Health Maintenance Due Date Last Done Comments Depression Screening 1945 DTaP/Tdap/Td Vaccine (1 - Tdap) 10/18/1954 Hepatitis B Screening 10/18/1961 Pneumococcal vaccine 65+ (1 of 1 - PCV) 10/18/1993 Zoster Vaccine (1 of 2) 10/18/1993 Well Visit 65+ 10/18/2008 Covid-19 Vaccine (8 - 2023-2 5 season) 2024 02/08/2024, 02/23/2023, 02/26/2022, Additional history exists Fall Risk Assessment 04/23/2025 04/23/2024 Influenza Vaccine Completed 02/08/2024, , 02/17/2022, Additional history exists Medical Devices Implanted Type Area Assembler Unit Device Identifier Shelf Expiration Date Model / Serial / Lot [employer] Lens Iol Tecnis Smplcty 1-Pc Clr [place] 20.5 Diopter [id number] - [id number] - [id number] Implanted:Qty: 1 on 12/23/2022 by Spring Yeboah MD at [facility] [employer] [id number] 07/19/2025 [id number] / [id number] / [employer] Lens Iol Tecnis Smplcty 1-Pc Clr [place] 20.5 Diopter [id number] - [id number] - [id number] Implanted:Qty: 1 on 02/17/2023 by Spring Yeboah MD at [facility] Left: Eye [employer] [id number] 09/13/2025 [id number] / [id number] / [place] [address] MEDICARE [facility] Address: [address] [address] [facility] Member Subscriber Plan / Payer (Ef fective 2019-Present) Name:Gilberto Deleon Relation to Subscriber:Spouse Name:KIRT DELEON Date of :1963 (Home) Address: [address] [place] [address] Payer ID:[id number] (NAIC) Group ID:[id number] Type: [employer] Address: [address] [place] [id number] [place] [address] MEDICARE [place] [address] Care Teams Facility Supervisor Relationship Specialty Start Date End Date Charly Barnes MD PCP - General Family Practice 05/04/21 John Younger MD [address] DEPT OPHTHALMOLOGY, [address] [address] Surgeon Ophthalmology 04/23/24
[2024-09-05 19:53] LABS: Hematocrit 44.9 % (42.0-52.0); Hemoglobin 12.4 g/dL (14.0-18.0); Mean Corpuscular HGB Conc 27.6 g/dl (32-36); Mean Corpuscular Hemoglobin 21.6 pg (26-34); Mean Corpuscular Volume 78.1 fl (80-100); Mean Platelet Volume 10.6 fl (7.4-10.4); Platelet Count Result 236 k/mm3 (150-375); Red Blood Count 5.75 M/mm3 (4.6-6.20); Red Cell Distribution Width 17.4 % (11.5-14.5); White Blood Count 5.5 K/mm3 (4.5-10.0)
[2024-09-05 20:12] LABS: Alanine Aminotransferase 21 U/L (6-50); Albumin Level 3.8 g/dL (3.5-5.1); Alkaline Phosphatase 72 U/L (38-126); Anion Gap 9 mmol/L (4-12); Aspartate Amino Transferase 125 U/L (17-59); Bilirubin,Total 0.6 mg/dL (0.2-1.3); Blood Urea Nitrogen 15 mg/dL (9-20); Calcium 8.7 mg/dL (8.4-10.2); Carbon Dioxide 29 mmol/L (22-30); Chloride 101 mmol/L (98-107); Cholesterol 113 mg/dL (0-200); Estimated Glomerular Filt Rate 56; Glucose 92 mg/dL (65-110); HDL Direct 37 mg/dL; Potassium 4.6 mmol/L (3.4-5.0); Sodium 139 mmol/L (137-145); Triglycerides 107 mg/dL (<150)
[2024-09-05 20:23] LABS: LDL Cholesterol Direct 38 mg/dL
[2024-09-05 20:38] LABS: Hemoglobin A1C 6.9 % (<5.7)
== END 2024-09-05 09:51 | disposition home or self-care (01) ==
PROVIDERS: PCP Family Medicine; Visit Provider Family Medicine
DX: D56.9 Thalassemia, unspecified (principal); E11.9 Type 2 diabetes mellitus without complications; I10 Essential (primary) hypertension
CPT/HCPCS: 36415; 80053; 80061; 83036; 85027

== ENCOUNTER 2024-11-27 09:40 | Outpatient (CLI) | payer MEDICARE, BC, SELFPAY ==
--- OUTSIDE RECORDS SUMMARY | 2024-11-27 09:47 | XMS_ITS | Clinical Summary ---
Author Organization [facility] Address [address] [place] [address] Care Team Providers Care Airplane Dispatcher Name Role Phone Charly Barnes MD Primary Care Provider [phone] John Younger MD Unavailable [phone] Allergies No known active allergies Medications Eliquis [...] mg total) by mouth nightly Active omega 3-ovo-dod-fish oil 1,200 (144-216) mg capsule Take 1,200 [...] 06/27/2023 Assessment & Plan (06/27/2023 9:17 PM COOK FISHING VESSEL): Defers Mrx for now May obtain elsewhere Postop check 12/24/2022 Assessment & Plan (04/29/2023 2:31 PM COOK FISHING VESSEL): POM2.5 status post (s/p) cataract extraction (CE)/intraocular [...] 12/01/2020 Assessment & Plan (04/28/2024 8:08 AM COOK FISHING VESSEL): Intraocular pressure (IOP) acceptable low teens on 2 classes status post (s/p) KDB Zavala visual field (HVF) NS defects, OCT stable with early thinning CPM for now Assessment & Plan (10/29/2023 8:29 AM CDT): intraocular pressure (IOP) stable in low teens on 2 classes status post (s/p) KDB CPM for now Assessment & Plan (06/27/2023 9:16 PM COOK FISHING VESSEL): intraocular pressure (IOP) stable in low teens [...] testing Assessment & Plan (06/01/2022 10:26 AM COOK FISHING VESSEL): Patient states he was noticing some visual [...] SLT Assessment & Plan (05/04/2021 10:53 AM COOK FISHING VESSEL): intraocular pressure (IOP) improved - good adherence [...] 12/01/2020 Assessment & Plan (04/28/2024 8:06 AM COOK FISHING VESSEL): Status post (s/p) bleb revision- intraocular pressure (IOP) acceptable back on 2 classes CPM Zavala visual field (HVF) 10-2 and OCT stable F/U [address] Whatley DFE F/U 1 yr with fl Zavala visual field (HVF) 24-2 both eyes (OU), OCT Assessment & Plan (10/29/2023 8:28 AM CDT): Status post (s/p) bleb revision- intraocular pressure (IOP) acceptable back on 2 classes CPM F/U 4-5 months with Zavala visual field (HVF) 10-2 left eye (OS), 24-2 right eye (OD), OCT Assessment & Plan (06/27/2023 9:15 PM COOK FISHING VESSEL): Status post (s/p) bleb revision- intraocular pressure [...] OCT Assessment & Plan (06/01/2022 10:28 AM COOK FISHING VESSEL): S/P trab Previous follicular conjunctivitis, patient has [...] (GCL) Assessment & Plan (05/04/2021 10:53 AM COOK FISHING VESSEL): intraocular pressure (IOP) acceptable status post (s/p) [...] observe Assessment & Plan (05/04/2021 10:54 AM COOK FISHING VESSEL): No significant lens rise, Not VS BAT next visit Assessment & Plan (12/01/2020 9:05 PM CDT): No significant lens rise, Not VS Encounters Date Type Department Care Team Description 10/30/2024 Telephone [facility] [place] [address] Spring Yeboah MD questions for clinic from Last 3 Months Immunizations Immunization Administration Dates Next Due Influenza, [...] Glaucoma Hypertension Arrhythmia CHF (congestive heart failure) (HCC) A-fib (HCC) Family History Medical History Relation Name Comments [...] Comments Blood Pressure 128/85 04/23/2024 11:45 AM COOK FISHING VESSEL Pulse 71 04/23/2024 11:45 AM COOK FISHING VESSEL Temperature 36.2 C (97.2 F) 04/23/2024 11:15 AM COOK FISHING VESSEL Respiratory Rate 20 04/23/2024 11:4 5 AM COOK FISHING VESSEL Oxygen Saturation 95% 04/23/2024 11: 45 AM COOK FISHING VESSEL Inhaled Oxygen Concentration - - Weight 112.4 kg (247 lb 11.2 oz) 04/23/2024 9:37 AM COOK FISHING VESSEL Height 190.5 cm (6' 3) 04/23/2024 9:37 AM COOK FISHING VESSEL Body Mass Index 30.96 04/23/2024 9:37 AM COOK FISHING VESSEL Plan of Treatment Health Maintenance Due Date Last Done Comments Depression Screening 1945 DTaP/Tdap/Td Vaccine (1 - Tdap) 10/18/1954 Hepatitis B Screening 10/18/1961 Pneumococcal vaccine 65+ (1 of 1 - PCV) 10/18/1993 Zoster Vaccine (1 of 2) 10/18/1993 Well Visit 65+ 10/18/2008 Covid-19 Vaccine (8 - 2023-2 5 season) 2024 02/08/2024, 02/23/2023, 02/26/2022, Additional history exists Influenza Vaccine (#1) 2025 , 02/23/2023, 02/17/2022, Additional history exists Fall Risk Assessment 04/23/2025 04/23/2024 Medical Devices Implanted Type Area Kindergarten Instructional Assistant Device Identifier Shelf Expiration Date Model / Serial / Lot [employer] Lens Iol Tecnis Smplcty 1-Pc Clr [place] 20.5 Diopter [id number] - [id number] - [id number] Implanted:Qty: 1 on 12/23/2022 by Spring Yeboah MD at [facility] [employer] [id number] 07/19/2025 [id number] / [id number] / [employer] Lens Iol Tecnis Smplcty 1-Pc Clr [place] 20.5 Diopter [id number] - [id number] - [id number] Implanted:Qty: 1 on 02/17/2023 by Spring Yeboah MD at [facility] Left: Eye [employer] [id number] 09/13/2025 [id number] / [id number] / Insurance MEDICARE [facility] FEDERAL MEDICARE [facility] [place] [id number] Care Teams Airplane Dispatcher Relationship Specialty Start Date End Date Charly Barnes MD PCP - General Family Practice 05/04/21 John Younger MD [address] DEPT OPHTHALMOLOGY, [address] [address] Surgeon Ophthalmology 04/23/24
--- OUTSIDE RECORDS SUMMARY | 2024-11-27 09:47 | XMS_ITS | Referral Summary ---
Author Organization [facility] Address [address] [place] [address] Care Team Providers Care House Fellow Name Role Phone Charly Barnes MD Primary Care Provider [phone] John Younger MD Unavailable [phone] Encounters Date Type Department Care Team Description 10/30/2024 Telephone [facility] Ophthalmology [address] [place] [address] Spring Yeboah MD questions for clinic from Last 3 Months Allergies No known active allergies Medications Eliquis [...] mg total) by mouth nightly Active omega 8-egz-vdn-fish oil 1,200 (144-216) mg capsule Take 1,200 [...] 06/27/2023 Assessment & Plan (06/27/2023 9:17 PM MASTER COOK): Defers Mrx for now May obtain elsewhere Postop check 12/24/2022 Assessment & Plan (04/29/2023 2:31 PM MASTER COOK): POM2.5 status post (s/p) cataract extraction (CE)/intraocular [...] 12/01/2020 Assessment & Plan (04/28/2024 8:08 AM MASTER COOK): Intraocular pressure (IOP) acceptable low teens on 2 classes status post (s/p) KDB Zavala visual field (HVF) NS defects, OCT stable with early thinning CPM for now Assessment & Plan (10/29/2023 8:29 AM CDT): intraocular pressure (IOP) stable in low teens on 2 classes status post (s/p) KDB CPM for now Assessment & Plan (06/27/2023 9:16 PM MASTER COOK): intraocular pressure (IOP) stable in low teens [...] testing Assessment & Plan (06/01/2022 10:26 AM MASTER COOK): Patient states he was noticing some visual [...] (CE)/MIGS may be a good option- noted Chrissy galvan Assessment & Plan (09/28/2021 9:59 PM CDT): intraocular pressure (IOP) borderline with nl nerve fiber layer (NFL) and full Zavala visual field (HVF) CPM- tolerating brimonidine with chronic follicular changes/stable Narrow angle- may be difficult to perform SLT Assessment & Plan (05/04/2021 10:53 AM MASTER COOK): intraocular pressure (IOP) improved - good adherence [...] 12/01/2020 Assessment & Plan (04/28/2024 8:06 AM MASTER COOK): Status post (s/p) bleb revision- intraocular pressure (IOP) acceptable back on 2 classes CPM Zavala visual field (HVF) 10-2 and OCT stable F/U [address] Whatley DFE F/U 1 yr with me Zavala visual field (HVF) 24-2 both eyes (OU), OCT Assessment & Plan (10/29/2023 8:28 AM CDT): Status post (s/p) bleb revision- intraocular pressure (IOP) acceptable back on 2 classes CPM F/U 4-5 months with Zavala visual field (HVF) 10-2 left eye (OS), 24-2 right eye (OD), OCT Assessment & Plan (06/27/2023 9:15 PM MASTER COOK): Status post (s/p) bleb revision- intraocular pressure [...] OCT Assessment & Plan (06/01/2022 10:28 AM MASTER COOK): S/P trab Previous follicular conjunctivitis, patient has [...] (GCL) Assessment & Plan (05/04/2021 10:53 AM MASTER COOK): intraocular pressure (IOP) acceptable status post (s/p) trab on 3 classes Monitor closely Reviewed records from Dr. Osborne Needling may be difficult with diffusely thickened bleb F/U 5 months- Zavala visual field (HVF), OCT, BAT, DFE Assessment & Plan (01/06/2021 7:54 AM CDT): intraocular pressure (IOP) acceptable status post (s/p) trab on 3 classes Monitor closely Reviewed records from Dr. Osborne Needling may be difficult with diffusely thickened [...] observe Assessment & Plan (05/04/2021 10:54 AM MASTER COOK): No significant lens rise, Not VS BAT [...] Comments Blood Pressure 128/85 04/23/2024 11:45 AM MASTER COOK Pulse 71 04/23/2024 11:45 AM MASTER COOK Temperature 36.2 C (97.2 F) 04/23/2024 11:15 AM MASTER COOK Respiratory Rate 20 04/23/2024 11:4 5 AM MASTER COOK Oxygen Saturation 95% 04/23/2024 11: 45 AM MASTER COOK Inhaled Oxygen Concentration - - Weight 112.4 kg (247 lb 11.2 oz) 04/23/2024 9:37 AM MASTER COOK Height 190.5 cm (6' 3) 04/23/2024 9:37 AM MASTER COOK Body Mass Index 30.96 04/23/2024 9:37 AM MASTER COOK Plan of Treatment Not on file Medical Devices Implanted Type Area Student Teaching Coordinator Device Identifier Shelf Expiration Date Model / Serial / Lot [employer] Lens Iol Tecnis Smplcty 1-Pc Clr [place] 20.5 Diopter [id number] - [id number] - [id number] Implanted:Qty: 1 on 12/23/2022 by Spring Yeboah MD at [facility] [place] [employer] [id number] 07/19/2025 [id number] / [id number] / [employer] Lens Iol Tecnis Smplcty 1-Pc Clr [place] 20.5 Diopter [id number] - [id number] - [id number] Implanted:Qty: 1 on 02/17/2023 by Spring Yeboah MD at [facility] Left: Eye [employer] [id number] 09/13/2025 [id number] / [id number] / Insurance MEDICARE [facility] MEDICARE [facility] Care Teams House Fellow Relationship Specialty Start Date End Date Charly Barnes MD PCP - General Family Practice 05/04/21 John Younger MD [address] DEPT OPHTHALMOLOGY, [address] [address] Surgeon Ophthalmology 04/23/24
[2024-11-27 19:47] LABS: Alanine Aminotransferase 23 U/L (6-50); Albumin Level 4.0 g/dL (3.5-5.1); Alkaline Phosphatase 58 U/L (38-126); Aspartate Amino Transferase 65 U/L (17-59); Bilirubin,Total 0.7 mg/dL (0.2-1.3); Total Protein 7.6 g/dL (6.3-8.2)
== END 2024-11-27 09:41 | disposition home or self-care (01) ==
LOC: ANHBWCLAB 09:42
PROVIDERS: PCP Family Medicine; Visit Provider Family Medicine
DX: R74.01 Elevation of levels of liver transaminase levels (principal)
CPT/HCPCS: 36415; 80076

== ENCOUNTER 2025-01-24 14:40 | Outpatient (CLI) | payer MEDICARE, BC, SELFPAY ==
--- OUTSIDE RECORDS SUMMARY | 2025-01-24 14:46 | XMS_ITS | Clinical Summary ---
Author Organization [facility] Address [address] [place] [address] Care Team Providers Care Art Education Professor Name Role Phone Charly Barnes MD Primary Care Provider [phone] John Younger MD Unavailable [phone] Allergies No known active allergies Medications Eliquis [...] mg total) by mouth nightly Active omega 9-ium-udj-fish oil 1,200 (144-216) mg capsule Take 1,200 [...] 06/27/2023 Assessment & Plan (06/27/2023 9:17 PM CHEMIST INTERN): Defers Mrx for now May obtain elsewhere Postop check 12/24/2022 Assessment & Plan (04/29/2023 2:31 PM CHEMIST INTERN): POM2.5 status post (s/p) cataract extraction (CE)/intraocular [...] 12/01/2020 Assessment & Plan (04/28/2024 8:08 AM CHEMIST INTERN): Intraocular pressure (IOP) acceptable low teens on 2 classes status post (s/p) KDB Zavala visual field (HVF) NS defects, OCT stable with early thinning CPM for now Assessment & Plan (10/29/2023 8:29 AM CDT): intraocular pressure (IOP) stable in low teens on 2 classes status post (s/p) KDB CPM for now Assessment & Plan (06/27/2023 9:16 PM CHEMIST INTERN): intraocular pressure (IOP) stable in low teens [...] testing Assessment & Plan (06/01/2022 10:26 AM CHEMIST INTERN): Patient states he was noticing some visual [...] SLT Assessment & Plan (05/04/2021 10:53 AM CHEMIST INTERN): intraocular pressure (IOP) improved - good adherence [...] 12/01/2020 Assessment & Plan (04/28/2024 8:06 AM CHEMIST INTERN): Status post (s/p) bleb revision- intraocular pressure (IOP) acceptable back on 2 classes CPM Zavala visual field (HVF) 10-2 and OCT stable F/U [address] Whatley DFE F/U 1 yr with or Zavala visual field (HVF) 24-2 both eyes (OU), OCT Assessment & Plan (10/29/2023 8:28 AM CDT): Status post (s/p) bleb revision- intraocular pressure (IOP) acceptable back on 2 classes CPM F/U 4-5 months with Zavala visual field (HVF) 10-2 left eye (OS), 24-2 right eye (OD), OCT Assessment & Plan (06/27/2023 9:15 PM CHEMIST INTERN): Status post (s/p) bleb revision- intraocular pressure [...] OCT Assessment & Plan (06/01/2022 10:28 AM CHEMIST INTERN): S/P trab Previous follicular conjunctivitis, patient has [...] (GCL) Assessment & Plan (05/04/2021 10:53 AM CHEMIST INTERN): intraocular pressure (IOP) acceptable status post (s/p) [...] observe Assessment & Plan (05/04/2021 10:54 AM CHEMIST INTERN): No significant lens rise, Not VS BAT next visit Assessment & Plan (12/01/2020 9:05 PM CDT): No significant lens rise, Not VS Encounters Date Type Department Care Team Description 10/30/2024 Telephone [facility] [facility] [place] [id number] Spring Yeboah MD questions for clinic from [...] Comments Blood Pressure 128/85 04/23/2024 11:45 AM CHEMIST INTERN Pulse 71 04/23/2024 11:45 AM CHEMIST INTERN Temperature 36.2 C (97.2 F) 04/23/2024 11:15 AM CHEMIST INTERN Respiratory Rate 20 04/23/2024 11:4 5 AM CHEMIST INTERN Oxygen Saturation 95% 04/23/2024 11: 45 AM CHEMIST INTERN Inhaled Oxygen Concentration - - Weight 112.4 kg (247 lb 11.2 oz) 04/23/2024 9:37 AM CHEMIST INTERN Height 190.5 cm (6' 3) 04/23/2024 9:37 AM CHEMIST INTERN Body Mass Index 30.96 04/23/2024 9:37 AM CHEMIST INTERN Plan of Treatment Health Maintenance Due Date Last Done Comments Depression Screening 1945 DTaP/Tdap/Td Vaccine (1 - Tdap) 10/18/1954 Hepatitis B Screening 10/18/1961 Pneumococcal vaccine 65+ (1 of 1 - PCV) 10/18/1993 Zoster Vaccine (1 of 2) 10/18/1993 Well Visit 65+ 10/18/2008 Covid-19 Vaccine (2023-2 5 season) 2024 02/08/2024, 02/23/2023, 02/26/2022, Additional history exists Influenza Vaccine (#1) 2025 , 02/23/2023, 02/17/2022, Additional history exists Fall Risk Assessment 04/23/2025 04/23/2024 Medical Devices Implanted Type Area Oven Operator Automatic Device Identifier Shelf Expiration Date Model / Serial / Lot [employer] Lens Iol Tecnis Smplcty 1-Pc Clr [place] 20.5 Diopter [id number] - [id number] - [id number] Implanted:Qty: 1 on 12/23/2022 by Spring Yeboah MD at [facility] [employer] [id number] 07/19/2025 [id number] / [id number] / [employer] Lens Iol Tecnis Smplcty 1-Pc Clr [place] 20.5 Diopter [id number] - [id number] - [id number] Implanted:Qty: 1 on 02/17/2023 by Spring Yeboah MD at [facility] Left: Eye [employer] [id number] 09/13/2025 [id number] / [id number] / Insurance MEDICARE [facility] FEDERAL [facility] [place] [phone] MEDICARE [facility] [place] [phone] Care Teams Art Education Professor Relationship Specialty Start Date End Date Charly Barnes MD PCP - General Family Practice 05/04/21 John Younger MD [address] DEPT OPHTHALMOLOGY, [address] [address] Surgeon Ophthalmology 04/23/24
[2025-01-24 18:52] LABS: Hematocrit 43.2 % (42.0-52.0); Hemoglobin 12.6 g/dL (14.0-18.0); Immature Granulocyte Percent A 0.2 % (0-0.5); Lymphocytes Absolute Auto 2.35 K/mm3 (0.9-3.2); Mean Corpuscular HGB Conc 29.2 g/dl (32-36); Mean Corpuscular Hemoglobin 21.9 pg (26-34); Mean Corpuscular Volume 75.0 fl (80-100); Nucleated Red Blood Cells Absolute Auto 0.000 K/mm3 (0.0-0.012); Nucleated Red Blood Cells Perc 0.0 % (0.0-0.2); Platelet Count Result 195 k/mm3 (150-375); Red Blood Count 5.76 M/mm3 (4.6-6.20); White Blood Count 5.9 K/mm3 (4.5-10.0)
[2025-01-24 19:07] LABS: Alanine Aminotransferase 25 U/L (6-50); Albumin Level 4.0 g/dL (3.5-5.1); Alkaline Phosphatase 77 U/L (38-126); Anion Gap 6 mmol/L (4-12); Aspartate Amino Transferase 63 U/L (17-59); Bilirubin,Total 0.6 mg/dL (0.2-1.3); Blood Urea Nitrogen 16 mg/dL (9-20); Calcium 8.8 mg/dL (8.4-10.2); Carbon Dioxide 28 mmol/L (22-30); Chloride 101 mmol/L (98-107); Estimated Glomerular Filt Rate 57; Glucose 113 mg/dL (65-110); Potassium 4.5 mmol/L (3.4-5.0); Sodium 135 mmol/L (137-145); Total Protein 7.7 g/dL (6.3-8.2)
[2025-01-24 19:10] LABS: Hypochromasia 1+
[2025-01-24 19:11] LABS: Ovalocytes 1+; Schistocytes None Seen
[2025-01-24 19:12] LABS: NT Pro B Type Natriuretic Pept 1060 pg/mL (19.9-100)
[2025-01-24 19:34] LABS: MALB Creatinine Ratio 12.8 mg/g (0-30); Prostate Specific Antigen 0.1 ng/mL (< OR = 4.0); Thyroid Stimulating Hormone 1.920 uIU/mL (0.465-4.680)
[2025-01-24 19:53] LABS: Vitamin B12 919.0 pg/mL (239-931)
[2025-01-24 20:28] LABS: Hemoglobin A1C 6.7 % (<5.7)
== END 2025-01-24 14:41 | disposition home or self-care (01) ==
PROVIDERS: PCP Family Medicine; Visit Provider Family Medicine
DX: I48.91 Unspecified atrial fibrillation (principal); E78.5 Hyperlipidemia, unspecified; D64.9 Anemia, unspecified; D56.9 Thalassemia, unspecified; E11.9 Type 2 diabetes mellitus without complications; E55.9 Vitamin D deficiency, unspecified; I11.0 Hypertensive heart disease with heart failure; I50.9 Heart failure, unspecified; Z12.5 Encounter for screening for malignant neoplasm of prostate
CPT/HCPCS: 36415; 80053; 82043; 82172; 82306; 82607; 83036; 83880; 84153; 84443; 85025; G0103

== ENCOUNTER 2025-01-29 10:54 | Outpatient (CLI) | payer MEDICARE, BC, SELFPAY ==
--- NOTE | 2025-01-29 10:57 | ECHO_ITS ---
Patient Info Name: Gilberto Soto Age: 79 years : 1945 Gender: Male Ht: 74 in Wt: 245 lbs BSA: 2.44 m2 HR: 75 bpm BP: 144 / 80 mmHg Heart Rhythm: Atrial Fibrillation Technical Quality: Good Exam Date: 01/29/2025 11:18 AM Patient Status: O Admit Date: 01/29/2025 Exam Type: CA echo doppler color flow Complete two-dimensional, color flow and Doppler transthoracic echocardiogram is performed. Abrasive Coating Machine Operator: Polnia Luna Attending Provider: Charly Barnes Summary 1. Complete two-dimensional, color flow and Doppler transthoracic echocardiogram is performed. 2. Left ventricular chamber dimension is mildly enlarged. 3. Left ventricular systolic function is normal, estimated at 55-60. 4. There is mild concentric increased left ventricular wall thickness. 5. The left ventricular diastolic function is abnormal. 6. E/e' 18 is elevated. 7. Atrial fibrillation. 8. Right ventricular chamber dimension is moderately enlarged. 9. Right ventricular systolic function is mildly reduced and with abnormal TAPSE 1.3 cm. 10. Left atrial chamber dimension is severely enlarged. 11. Right atrial chamber dimension is moderately enlarged. 12. There is mild aortic valve sclerosis. 13. There is mild mitral valve regurgitation. 14. There is mild to moderate tricuspid valve regurgitation. 15. No pulmonary hypertension, estimated pulmonary arterial systolic pressure is 35 mmHg. 16. There is small to moderate circumferential pericardial effusion. Left Ventricle E/e' 18 is elevated. Left ventricular chamber dimension is mildly enlarged. Left ventricular systolic function is normal, estimated at 55-60. There is mild concentric increased left ventricular wall thickness. The left ventricular diastolic function is abnormal. Atrial fibrillation. Right Ventricle Right ventricular chamber dimension is moderately enlarged. Right ventricular systolic function is mildly reduced and with abnormal TAPSE 1.3 cm. Left Atria Left atrial chamber dimension is severely enlarged. Right Atria Right atrial chamber dimension is moderately enlarged. Aortic Valve The aortic valve is trileaflet. There is mild aortic valve sclerosis. There is no aortic valve stenosis. There is no aortic valve regurgitation. Pulmonic Valve There is no pulmonic regurgitation. Mitral Valve There is no mitral valve stenosis. There is mild mitral valve regurgitation. Tricuspid Valve There is mild to moderate tricuspid valve regurgitation. No pulmonary hypertension, estimated pulmonary arterial systolic pressure is 35 mmHg. Pericardium/Pleural There is small to moderate circumferential pericardial effusion. No cardiac tamponade. Inferior Vena Cava Normal inferior vena cava with >50% collapse upon inspiration consistent with normal right atrial pressure, 5 mmHg. Aorta The aortic root size at the sinus of Valsalva is normal. Left Ventricular Outflow Tract Name Value Normal LVOT 2D LVOT Diameter 2.2 cm LVOT Doppler LVOT Peak Velocity 79 cm/s LVOT Peak Gradient 2 mmHg LVOT Mean Gradient 1 mmHg LVOT VTI 18 cm LVOT VTI/AV VTI Ratio 0.8 LVOT Stroke Volume 70 ml LVOT CO 11.2 l/min LVOT CI 4.6 l/min/m2 Pulmonic Valve Name Value Normal PV Doppler PV Peak Velocity 79 cm/s PV Peak Gradient 2 mmHg Mitral Valve Name Value Normal MV Diastolic Function MV E Peak Velocity 126 cm/s MV A Peak Velocity 5 cm/s MV E/A 25.9 MV Decel Time (PW) 172 ms MV Annular TDI MV E/e' (Septal) 20.2 MV E/e' (Lateral) 16.2 MV E/e' (Average) 18.2 Tricuspid Valve Name Value Normal TV Regurgitation Doppler TR Peak Velocity 275 cm/s TR Peak Gradient 30 mmHg Estimated PAP/RSVP RA Pressure 5 mmHg <=5 PA Systolic Pressure 35 mmHg <36 RV Systolic Pressure 35 mmHg <36 TV Annular TDI TV Lateral Charis s' Velocity 6.7 cm/s >=9.5 Aorta Name Value Normal Ascending Aorta Ao Root Diameter (MM) 3.5 cm Ao Root Diam Index (MM) 1.4 cm/m2 Aortic Valve Name Value Normal AV Doppler AV Peak Velocity 99 cm/s AV Peak Gradient 3 mmHg AV Mean Gradient 2 mmHg AV VTI 22 cm AV Area (Cont Eq VTI) 3.2 cm2 >=3.0 AV Area (Cont Eq Marshall) 3.1 cm2 AV DI (Marshall) 0.79 AV Regurgitation 2D LVOT Area 4.0 cm2 Ventricles Name Value Normal LV Dimensions 2D/MM IVS Diastolic Thickness (2D) 1.2 cm 0.6-1.0 LVID Diastole (2D) 5.2 cm 4.2-5.8 LVIW Diastolic Thickness (2D) 1.3 cm 0.6-1.0 LVID Systole (2D) 3.6 cm 2.5-4.0 LVOT Diameter 2.2 cm LV Mass (2D Cubed) 261.96 g 88.00-224.00 LV Mass Index (2D Cubed) 108 g/m2 49-115 Relative Wall Thickness (2D) 0.49 <=0.42 LV Fractional Shortening/Ejection Fraction 2D/MM LV Fractional Shortening (2D) 31 % 25-43 LV EF (2D Teichholz) 58 % LV Diastolic Volume (4C MOD) 102 ml LV EF (4C MOD) 53 % LV Diastolic Volume (2C MOD) 143 ml LV EF (2C MOD) 56 % LV Diastolic Volume (BP MOD) 122 ml 62-150 LV Diastolic Volume Index (BP MOD) 50 ml/m2 34-74 LV Systolic Volume (BP MOD) 57 ml 21-61 LV Systolic Volume Index (BP MOD) 24 ml/m2 11-31 LV EF (BP MOD) 53 % 52-72 LV Diastolic Length (4C) 8.7 cm LV Systolic Length (4C) 7.9 cm LV Stroke Volume (4C MOD) 54 ml RV Dimensions 2D/MM RVID Diastole (2D) 5.0 cm 2.1-3.5 Atria Name Value Normal LA Dimensions LA Dimension (MM) 4.9 cm 3.0-4.0 LA Volume (4C A-L) 116 ml LA Volume (BP A-L) 124 ml RA Dimensions RA Systolic Major Willard Length (4C) 6.4 cm 2.1-2.7 RA Area (4C) 27.0 cm2 <=18.0 Report Signatures
--- OUTSIDE RECORDS SUMMARY | 2025-01-29 12:45 | XMS_ITS | Clinical Summary ---
Author Organization [facility] Address [address] [place] [address] Care Team Providers Care Axle Polisher Name Role Phone Charly Barnes MD Primary Care Provider [phone] John Younger MD Unavailable [phone] Allergies No known active allergies Medications Eliquis [...] mg total) by mouth nightly Active omega 7-coa-ziv-fish oil 1,200 (144-216) mg capsule Take 1,200 [...] 06/27/2023 Assessment & Plan (06/27/2023 9:17 PM INTERNATIONAL TRADE TEACHER): Defers Mrx for now May obtain elsewhere Postop check 12/24/2022 Assessment & Plan (04/29/2023 2:31 PM INTERNATIONAL TRADE TEACHER): POM2.5 status post (s/p) cataract extraction (CE)/intraocular [...] 12/01/2020 Assessment & Plan (04/28/2024 8:08 AM INTERNATIONAL TRADE TEACHER): Intraocular pressure (IOP) acceptable low teens on 2 classes status post (s/p) KDB Zavala visual field (HVF) NS defects, OCT stable with early thinning CPM for now Assessment & Plan (10/29/2023 8:29 AM CDT): intraocular pressure (IOP) stable in low teens on 2 classes status post (s/p) KDB CPM for now Assessment & Plan (06/27/2023 9:16 PM INTERNATIONAL TRADE TEACHER): intraocular pressure (IOP) stable in low teens [...] testing Assessment & Plan (06/01/2022 10:26 AM INTERNATIONAL TRADE TEACHER): Patient states he was noticing some visual [...] SLT Assessment & Plan (05/04/2021 10:53 AM INTERNATIONAL TRADE TEACHER): intraocular pressure (IOP) improved - good adherence [...] 12/01/2020 Assessment & Plan (04/28/2024 8:06 AM INTERNATIONAL TRADE TEACHER): Status post (s/p) bleb revision- intraocular pressure (IOP) acceptable back on 2 classes CPM Zavala visual field (HVF) 10-2 and OCT stable F/U [address] Whatley DFE F/U 1 yr with wv Zavala visual field (HVF) 24-2 both eyes (OU), OCT Assessment & Plan (10/29/2023 8:28 AM CDT): Status post (s/p) bleb revision- intraocular pressure (IOP) acceptable back on 2 classes CPM F/U 4-5 months with Zavala visual field (HVF) 10-2 left eye (OS), 24-2 right eye (OD), OCT Assessment & Plan (06/27/2023 9:15 PM INTERNATIONAL TRADE TEACHER): Status post (s/p) bleb revision- intraocular pressure [...] OCT Assessment & Plan (06/01/2022 10:28 AM INTERNATIONAL TRADE TEACHER): S/P trab Previous follicular conjunctivitis, patient has [...] (GCL) Assessment & Plan (05/04/2021 10:53 AM INTERNATIONAL TRADE TEACHER): intraocular pressure (IOP) acceptable status post (s/p) [...] observe Assessment & Plan (05/04/2021 10:54 AM INTERNATIONAL TRADE TEACHER): No significant lens rise, Not VS BAT next visit Assessment & Plan (12/01/2020 9:05 PM CDT): No significant lens rise, Not VS Encounters Date Type Department Care Team Description 10/30/2024 Telephone [facility] [phone] Spring Yeboah MD questions for clinic from [...] Comments Blood Pressure 128/85 04/23/2024 11:45 AM INTERNATIONAL TRADE TEACHER Pulse 71 04/23/2024 11:45 AM INTERNATIONAL TRADE TEACHER Temperature 36.2 C (97.2 F) 04/23/2024 11:15 AM INTERNATIONAL TRADE TEACHER Respiratory Rate 20 04/23/2024 11:4 5 AM INTERNATIONAL TRADE TEACHER Oxygen Saturation 95% 04/23/2024 11: 45 AM INTERNATIONAL TRADE TEACHER Inhaled Oxygen Concentration - - Weight 112.4 kg (247 lb 11.2 oz) 04/23/2024 9:37 AM INTERNATIONAL TRADE TEACHER Height 190.5 cm (6' 3) 04/23/2024 9:37 AM INTERNATIONAL TRADE TEACHER Body Mass Index 30.96 04/23/2024 9:37 AM INTERNATIONAL TRADE TEACHER Plan of Treatment Health Maintenance Due Date [...] 04/23/2025 04/23/2024 Medical Devices Implanted Type Area Chronometer Repairer Device Identifier Shelf Expiration Date Model / Serial / Lot [employer] Lens Iol Tecnis Smplcty 1-Pc [place]r [place] 20.5 Diopter [id number] - [id number] - [id number] Implanted:Qty: 1 on 12/23/2022 by Spring Yeboah MD at [facility] [employer] [id number] 07/19/2025 [id number] / [id number] / [employer] Lens Iol Tecnis Smplcty 1-Pc [place]r [place] 20.5 Diopter [id number] - [id number] - [id number] Implanted:Qty: 1 on 02/17/2023 by Spring Yeboah MD at [facility] Left: Eye [employer] [id number] 09/13/2025 [id number] / [id number] / Insurance MEDICARE [facility] [place] [id number] MEDICARE [facility] [place] [id number] Care Teams Axle Polisher Relationship Specialty Start Date End Date Charly Barnes MD PCP - General Family Practice 05/04/21 John Younger MD [address] [facility], [address] [address] Surgeon Ophthalmology 04/23/24
== END 2025-01-29 10:55 | disposition home or self-care (01) ==
LOC: ANHCARD 10:55
PROVIDERS: PCP Family Medicine; Visit Provider Family Medicine
DX: R94.31 Abnormal electrocardiogram [ECG] [EKG] (principal); I50.9 Heart failure, unspecified
CPT/HCPCS: 93306